=== PATIENT | male | born 1945 | race Caucasian/White ===

== ENCOUNTER 2016-06-16 20:30 | Observation (INO) | payer BC ==
--- NOTE | ~2016-06-16 | DS ---
Discharge Summary [facility] [address] [place]. [address] NAME: NEY CARLTON : 43 STATUS : DIS Francesca PAT#: [id number] AGE: 70 ADM/REG DATE : 06/16/16 MR#: [id number] REPORT SERV DATE: 06/18/16 DICTATED BY: JOSELYN BARRIOS DATE: 06/17/16 REPORT STATUS : Draft TRANSCRIBED BY: MODL DATE: 06/17/16 ADMISSION DATE: 06/16/2016 DISCHARGE DATE: 06/17/2016 DISCHARGE DIAGNOSIS: Hematemesis due to erosive esophagitis, due to gastroesophageal reflux disease, hypertension. HISTORY OF PRESENT ILLNESS: Please see dictation, 06/16/2016. HOSPITAL COURSE: Admitted with retching after choking on some meat followed by bright red hematemesis. The patient's hematocrit was stable. He had an EGD the following morning, showed actually severe erosive esophagitis with evidence of recent bleeding, but no peptic ulcer disease. He was stopped from all NSAIDs. He was put on Protonix and Carafate, able to be released home after advancing diet on 06/17/2016 in satisfactory condition. Instructed to avoid spicy or fatty foods. Activity as tolerated. Following up with Dr. Childers over the next several months for possible followup EGD. SANDRINE/MINERVA Joselyn Barrios M.D. / [id number] CC: Dimas Capone M.D.
--- NOTE | ~2016-06-16 | CN ---
Consultation Report [facility] [address] [place]. [address] NAME: NEY CARLTON : 43 STATUS : ADM Francesca PAT#: [id number] AGE: 70 ADM/REG DATE : 06/16/16 MR#: [id number] REPORT SERV DATE: 06/17/16 DICTATED BY: TAI SAHNI DATE: 06/17/16 REPORT STATUS : Draft TRANSCRIBED BY: MODL DATE: 06/17/16 GI CONSULTATION DATE OF CONSULTATION: 06/17/2016 REASON FOR CONSULTATION: Evaluation and management of hematemesis. HISTORY OF PRESENT ILLNESS: Mr. Carlton is a 70-year-old male patient, known to Dr. Childers in the outpatient setting, who presented to [facility] on 06/16 with a chief complaint of nausea, vomiting, retching with subsequent hematemesis. He states that he was in his usual state of health up until yesterday evening when he sat down with his to have his evening meal. He states they were eating steak. He only had a couple of bites, he got choked on the steak. It should be noted that he has a history of esophageal stricture, status post dilation in 2015. He states with that, he vomited up his steak, tried to drink some water, but then began to have retching. He states multiple episodes with some bright red blood intermixed. He denies any melena. He came into the hospital for further evaluation, very stable hemoglobin and was admitted at 16.2, presently it is 14.6. He has not had any subsequent vomiting. He has been n.p.o. and been maintained on a Protonix drip. I have discussed with him we will proceed with EGD today. Risks, benefits, alternatives, and complications were detailed for him to include, but not limited to risk of bleeding, perforation, infection, reaction to medications, as well as cardiac and pulmonary side effects. He is agreeable to proceed. He had an EGD with Dr. Childers on 10/03/2015. Findings on that exam showed a benign-appearing esophageal stricture, which he dilated up to a 54-Sammarinese, and also findings of LA grade D reflux esophagitis, a hiatal hernia, and normal duodenum. PAST MEDICAL HISTORY: Positive for hypertension, osteoarthritis, chronic low back pain, history of necrotizing fasciitis, esophagitis, esophageal stricture, hiatal hernia. PAST SURGICAL HISTORY: Bilateral total hip, bilateral total knee replacement. ALLERGIES: NO KNOWN ALLERGIES. HOME MEDICATIONS: Aspirin, Flonase, loratadine, and meloxicam. SOCIAL HISTORY: He denies any tobacco or illicits. Social alcohol. and lives independently with his . FAMILY HISTORY: Negative from a GI standpoint. REVIEW OF SYSTEMS: A 10-point review of systems has been obtained with pertinent positives being addressed in the history of present illness. Consultation Report [facility] [id number] [place]. [address] NAME: NEY CARLTON : 43 STATUS : ADM Francesca PAT#: [id number] AGE: 70 ADM/REG DATE : 06/16/16 MR#: [id number] REPORT SERV DATE: 06/17/16 DICTATED BY: TAI SAHNI DATE: 06/17/16 REPORT STATUS : Draft TRANSCRIBED BY: MINERVA DATE: 06/17/16 PERTINENT LABORATORY DATA: Sodium 143, potassium 4.0, BUN is 13, creatinine 0.84. White count 9.6, hemoglobin 14.6, hematocrit 42.5, platelet count 145. INR of 1.0. PHYSICAL EXAMINATION: VITAL SIGNS: Temperature 97.7, pulse 68, respirations 18, and blood pressure 144/81. NEURO: Reveals an alert male, resting in bed with no focal deficits. GENERAL: Cooperative, in no apparent distress. Awake, alert, and oriented x3. HEAD, EARS, EYES, NOSE, AND THROAT: Anicteric. Pupils equal, round, reactive to light and accommodation. Normocephalic and atraumatic. NECK: No JVD. No palpable nodes. Supple. LUNGS: Clear anteriorly with normal respiratory effort exhibited. Equal expansion. CARDIOVASCULAR SYSTEM: Regular rate and rhythm. S1 and S2. No murmurs, rubs, gallops, S3, or S4 appreciated. ABDOMEN: Soft and nontender with active bowel sounds in all four quadrants. No organomegaly appreciated. No rebound or guarding elicited on exam. EXTREMITIES: No edema. Normal distal pulses. SKIN: Warm, dry, and intact. ASSESSMENT: 1. Nausea and vomiting with hematemesis, most likely Jackie-Trevino tear. Differential diagnosis includes Jackie-Trevino tear, esophagitis, gastritis, or peptic ulcer disease. 2. History of esophageal stricture, status post dilation in 2016. PLAN: 1. EGD this morning. 2. Continue Protonix drip. 3. Other recommendations to follow endoscopy. JOO/MINERVA [place] MICHI Joshua / [id number] CC: Anderson Guevara M.D.
--- NOTE | ~2016-06-16 | EGD ---
EGD REPORT [facility] [address] [place]. [address] NAME: NEY CARLTON : 43 STATUS : ADM Francesca PAT#: [id number] AGE: 70 ADM/REG DATE : 06/16/16 MR#: [id number] REPORT SERV DATE: 06/17/16 DICTATED BY: RAAD MILLS DATE: 06/17/16 REPORT STATUS : Draft TRANSCRIBED BY: [facility] DATE: 06/17/16 Endoscopy Center Patient Name: Ney Carlton Date of : 1945 Attending MD: RAAD MLILS MD Procedure Date No Time: 06/17/2016 Procedure: Upper GI endoscopy Indications: Hematemesis Medicines: Monitored Anesthesia Care Complications: No immediate complications. Estimated blood loss: Minimal. Procedure: Pre-Anesthesia Assessment: - ASA Grade Assessment: III - A patient with severe systemic disease. After obtaining informed consent, the endoscope was passed under direct vision. Throughout the procedure, the patient's blood pressure, pulse, and oxygen saturations were monitored continuously. The GIF [id number] was introduced through the mouth, and advanced to the second part of duodenum. The upper GI endoscopy was accomplished without difficulty. The patient tolerated the procedure well. Findings: LA Grade C (one or more mucosal breaks continuous between tops of 2 or more mucosal folds, less than 75% circumference) esophagitis with no bleeding was found in the lower third of the esophagus. A low-grade of narrowing Schatzki ring (acquired) was found at the gastroesophageal junction. A single medium-sized purple nodule (vessel vs adherent clot) was found in the middle third of the esophagus. One hemostatic clip was successfully placed. Bleeding had stopped at the end of the procedure. Estimated blood loss was minimal. The entire examined stomach was normal. The examined duodenum was normal. Impression: - LA Grade C esophagitis. - Low-grade of narrowing Schatzki ring. - Mucosal tear with vessel vs adherent clot found in the esophagus. Clip was placed. - Otherwise normal examination Recommendation: - Return patient to hospital [facility] for observation. - Full liquid diet for 3 days then mechanical soft diet until follow up with GI. EGD REPORT [address] [address] NAME: NEY CARLTON : 43 STATUS : ADM Francesca PAT#: [id number] AGE: 70 ADM/REG DATE : 06/16/16 MR#: [id number] REPORT SERV DATE: 06/17/16 DICTATED BY: RAAD MILLS DATE: 06/17/16 REPORT STATUS : Draft TRANSCRIBED BY: [employer] DATE: 06/17/16 - Use Protonix (pantoprazole) 40 mg PO BID for 6 weeks. - Return to GI clinic in 4 weeks for repeat EGD to check healing and consider dilation of ring. Procedure Code(s): --- Professional --- 89528, Esophagogastroduodenoscopy, flexible, transoral; diagnostic, including collection of specimen(s) by brushing or washing, when performed (separate procedure) Diagnosis Code(s): --- Professional --- K20.9, Esophagitis, unspecified K22.2, Esophageal obstruction K22.8, Other specified diseases of esophagus K92.0, Hematemesis CPT copyright 2013 [employer]. All rights reserved. The codes documented in this report are preliminary and upon applications administrator review may be revised to meet current compliance requirements. Raad Mills MD RAAD MILLS MD 06/17/2016 11:42 AM This report has been signed electronically. Number of Addenda: 0 Note Initiated On: 06/17/2016 11:11 AM Scope Withdrawal Time 0 hours 0 minutes 0 seconds [id number] [id number]
--- NOTE | ~2016-06-16 | HP ---
History And Physical [address] [place]. [address] NAME: NEY CARLTON : 43 STATUS : ADM Francesca PAT#: [id number] AGE: 70 ADM/REG DATE : 06/16/16 MR#: [id number] REPORT SERV DATE: 06/17/16 DICTATED BY: KUNAL WOODS DATE: 06/17/16 REPORT STATUS : Draft TRANSCRIBED BY: MODMoncho DATE: 06/17/16 DATE OF ADMISSION: 06/16/2016 POINT OF ENTRY: [facility] Emergency Department. PRIMARY CARE PHYSICIAN: None at this time. CHIEF COMPLAINT: Hematemesis. HISTORY OF PRESENT ILLNESS: Mr. Carlton is a 70-year-old gentleman with a history of osteoarthritis as well as borderline blood pressure, not currently on medications, who presents to the emergency department today with reports of acute onset of hematemesis. The patient reports he was in his usual state of health and eating dinner at home when he got choked up on some of his dinner. He subsequently vomited up the contents of his dinner, tried to drink some water shortly afterwards, vomited again, and shortly after that started to vomit again, at this time was small amounts of bright red blood, estimated to be teaspoon sized amount. The patient otherwise denies any fevers, night sweats, chills, chest pain, cough, sputum production, shortness of breath, abdominal pain, diarrhea, constipation, dysuria, melena, hematochezia, or hemoptysis. REVIEW OF SYSTEMS: Comprehensive review of system otherwise negative unless listed in history of present illness. Initial evaluation in the emergency department notable for a hemoglobin of 16.2, INR 1.0. Labs were stable. The patient was subsequently admitted to the Hospitalist Service for further evaluation and management. PREVIOUS MEDICAL HISTORY: 1. Borderline blood pressure, not on medications. 2. Osteoarthritis. 3. Chronic lower back pain. 4. Remote history of necrotizing fasciitis. SURGICAL HISTORY: 1. Bilateral total hip. 2. Bilateral total knee. ALLERGIES: NO KNOWN DRUG ALLERGIES. HOME MEDICATIONS: 1. Aspirin 81 mg daily. 2. Flonase one spray nasal daily. History And Physical [address] [place] [address] NAME: NEY CARLTON : 43 STATUS : ADM Francesca PAT#: [id number] AGE: 70 ADM/REG DATE : 06/16/16 MR#: [id number] REPORT SERV DATE: 06/17/16 DICTATED BY: KUNAL WOODS DATE: 06/17/16 REPORT STATUS : Draft TRANSCRIBED BY: MINERVA DATE: 06/17/16 3. Loratadine 10 mg daily. 4. Meloxicam 7.5 mg daily. SOCIAL HISTORY: He denies any tobacco or illicits. Occasional alcohol intake. FAMILY MEDICAL HISTORY: Mother in her 90s of old age. Father of complications of a hip replacement. Sibling with a history of renal cell carcinoma. LABS AND IMAGIN. White count 9.6, hemoglobin 16.2, hematocrit is 46.2, platelet count is 145. INR 1.0. 2. Sodium is 143, potassium 4.0, chloride 105, carbon dioxide 29, BUN 13, creatinine 0.84, glucose is 94, calcium is 8.7, protein 7.3, albumin is 4.1, bilirubin is 0.5, ALT is 35, AST 20, alkaline phosphatase is 74. 3. Chest x-ray per my review shows no acute cardiopulmonary abnormality. PHYSICAL EXAMINATION: VITAL SIGNS: Initially, temperature is 98.1 degrees Fahrenheit, pulse is 74, respirations 16, saturating 96% on room air, blood pressure 190/100. On recheck it is now 138/90, pulse is 67, saturating 97% on room air. GENERAL: The patient is awake, alert, in no acute distress, resting comfortably in bed. He is a well-developed, well-nourished, elderly male. HEENT: Atraumatic and normocephalic. Moist mucous membranes. Pupils are equal, round, reactive to light and accommodation. Extraocular eye movements are intact. No scleral icterus. NECK: No jugular venous distention or carotid bruits. CARDIAC: Regular rate and rhythm. No murmurs, rubs, or gallops. Normal S1, S2. LUNGS: Clear to auscultation bilaterally. No wheezes, rhonchi, or crackles. ABDOMEN: Soft, nontender, nondistended. Good bowel sounds. No rebound, guarding, or rigidity. EXTREMITIES: Warm and well perfused. No cyanosis, clubbing, or edema. SKIN: Warm and dry. PSYCH: Affect appropriate. NEURO: Alert and oriented x3. Cranial nerves 2 through 12 grossly intact. Speech is normal. Gait not assessed. ASSESSMENT: Mr. Carlton is a 70-year-old, gentleman with no significant previous medical history, who developed some hematemesis after vomiting up his dinner, likely consistent with a Jackie-Trevino tear. PROBLEM LIST: 1. Hematemesis, likely Jackie-Trevino tear. 2. Thrombocytopenia. 3. Hypertension. PLAN: 1. Hematemesis. Given the patient's story, this is likely Jackie-Trevino tear from prior retching when he became choked up. He denies having received any endoscopies in the History And Physical [address] [address] NAME: NEY CARLTON : 43 STATUS : ADM Francesca PAT#: [id number] AGE: 70 ADM/REG DATE : 06/16/16 MR#: [id number] REPORT SERV DATE: 06/17/16 DICTATED BY: KUNAL WOODS DATE: 06/17/16 REPORT STATUS : Draft TRANSCRIBED BY: MINERVA DATE: 06/17/16 past. Denies any history of peptic ulcer disease or liver disease. We will trend out q.6 hours hemoglobin and hematocrits, make the patient nothing by mouth, and place the patient on a Protonix drip as directed by GI. Per discussion with GI by the ER staff, there are tentative plans for EGD evaluation in the morning. We will hold his aspirin and NSAIDs in the event that this might be peptic ulcer related. 2. Thrombocytopenia. This is very mild. We will continue to monitor. 3. Hypertension. The patient's blood pressure is much improved after having been stabilized here in the emergency department. We will continue to monitor, likely all due to stress and pain. 4. DVT prophylaxis. TEDs and SCDs given bleeding. CODE STATUS: The patient wished to be full code. BOLA/DAPHNEL Kunal Woods MD / [id number] CC: Anderson Guevara M.D.
[~2016-06-16 20:30] MED LIST: ADVIL PO; ASAB PO; C5 PO; CLARIT10 PO; CLARITD PO; FISH OIL OTC PO; FISH-EPA1000 MG PO; FLONASE NAS; HALF81 PO; MOBIC15 MG PO; MULTIVIT/MIN PO; PCET PO; THERAPEUTIC PO; VISINE0.05 % OPH; VITAMIN D1000 UNI1 PO; ZESTORETIC PO
[2016-06-16 20:51] LABS: BASOPHILS 0.5 %; BASOPHILS ABSOLUTE 0.03 10/3/uL (0.0-0.16); EOSINOPHILS 3.4 %; EOSINOPHILS ABSOLUTE 0.22 10/3/uL (0.0-0.53); ER CBC TAT 0 Hrs 05 Mins; IMMATURE GRANULOCYTES 0.2 %; IMMATURE GRANULOCYTES ABSOLUTE 0.01 10/3/uL (0.0-0.11); LYMPHOCYTES 17.2 %; LYMPHOCYTES ABSOLUTE 1.13 10/3/uL (0.67-4.30); MEAN CORPUS HGB CONC 35.3 g/dL (32.0-36.0); MEAN CORPUSCULAR HEMOGLOB 33.5 pg (26.0-34.0); MEAN CORPUSCULAR VOLUME 94.9 fL (80-100); MEAN PLATELET VOLUME 10.2 fL (9.2-13.0); MONOCYTES 8.2 %; MONOCYTES ABSOLUTE 0.54 10/3/uL (0.21-1.20); NEUTROPHILS 70.5 %; NEUTROPHILS ABSOLUTE 4.63 10/3/uL (2.02-8.40); PLATELET COUNT 151 10/3/uL (150-400); RBC DISTRIBUTION WIDTH 13.1 % (12.0-16.0); RED CELL COUNT 4.93 10/6/uL (4.7-6.1); WHITE BLOOD CELLS 6.6 10/3/uL (4.5-10.5)
[2016-06-16 20:57] LABS: HEMATOCRIT 46.8 % (40.0-51.0); HEMOGLOBIN 16.5 g/dL (13.6-17.8); MANUAL DIFF NO %
[2016-06-16 21:01] LABS: INTERNATIONAL NORMAL RATI 0.9 UNITS (-); PARTIAL THROMBO TIME 25.4 SEC (22.5-37.2); PROTIME (NOT ORD) 12.4 SEC (12.0-14.5)
[2016-06-16 21:04] LABS: A/G RATIO 1.2 (0.7-1.9); ALBUMIN 4.1 G/DL (3.5-5.0); BUN (BLOOD UREA NITROGEN) 12 MG/DL (6-23); CALCIUM, SERUM 8.7 MG/DL (8.5-10.4); CHLORIDE, SERUM 105 MMOL/L (96-112); CO2 (CARBON DIOXIDE) 31 MMOL/L (24-34); CREATININE 0.86 MG/DL (0.70-1.30); GFR AFRICAN AMERICAN 101 ML/MIN (>=60); GFR NON AFRICAN AMERICAN 87 ML/MIN (>=60); GLOBULIN 3.3 G/DL (2.5-4.1); GLUCOSE, SERUM 98 MG/DL (60-99); POTASSIUM, SERUM 4.1 MMOL/L (3.5-5.3); SGOT(AST) 19 U/L (5-40); SGPT(ALT) 33 U/L (5-65); SODIUM, SERUM 143 MMOL/L (135-148); TOTAL BILIRUBIN 0.4 MG/DL (0-1.2); TOTAL PROTEIN 7.4 G/DL (6.0-8.5)
[2016-06-16 21:05] LABS: ALKALINE PHOSPHATASE 75 U/L (45-117)
[2016-06-16 23:09] LABS: BASOPHILS 0.3 %; BASOPHILS ABSOLUTE 0.03 10/3/uL (0.0-0.16); EOSINOPHILS 2.5 %; EOSINOPHILS ABSOLUTE 0.24 10/3/uL (0.0-0.53); HEMATOCRIT 46.2 % (40.0-51.0); HEMOGLOBIN 16.2 g/dL (13.6-17.8); IMMATURE GRANULOCYTES 0.1 %; IMMATURE GRANULOCYTES ABSOLUTE 0.01 10/3/uL (0.0-0.11); LYMPHOCYTES 16.2 %; LYMPHOCYTES ABSOLUTE 1.55 10/3/uL (0.67-4.30); MEAN CORPUS HGB CONC 35.1 g/dL (32.0-36.0); MEAN CORPUSCULAR HEMOGLOB 33.3 pg (26.0-34.0); MEAN CORPUSCULAR VOLUME 94.9 fL (80-100); MEAN PLATELET VOLUME 10.6 fL (9.2-13.0); MONOCYTES 7.2 %; MONOCYTES ABSOLUTE 0.69 10/3/uL (0.21-1.20); NEUTROPHILS 73.7 %; NEUTROPHILS ABSOLUTE 7.06 10/3/uL (2.02-8.40); PLATELET COUNT 145 10/3/uL (150-400); RED CELL COUNT 4.87 10/6/uL (4.7-6.1)
[2016-06-16 23:11] LABS: ER CBC TAT 0 Hrs 06 MinsNP; MANUAL DIFF NO %; WHITE BLOOD CELLS 9.6 10/3/uL (4.5-10.5)
[2016-06-16 23:16] LABS: PARTIAL THROMBO TIME 25.3 SEC (22.5-37.2); PROTIME (NOT ORD) 13.2 SEC (12.0-14.5)
[2016-06-16 23:25] LABS: A/G RATIO 1.3 (0.7-1.9); ALBUMIN 4.1 G/DL (3.5-5.0); ALKALINE PHOSPHATASE 74 U/L (45-117); BUN (BLOOD UREA NITROGEN) 13 MG/DL (6-23); CALCIUM, SERUM 8.7 MG/DL (8.5-10.4); CHLORIDE, SERUM 105 MMOL/L (96-112); CO2 (CARBON DIOXIDE) 29 MMOL/L (24-34); CREATININE 0.84 MG/DL (0.70-1.30); GFR AFRICAN AMERICAN 102 ML/MIN (>=60); GFR NON AFRICAN AMERICAN 88 ML/MIN (>=60); GLOBULIN 3.2 G/DL (2.5-4.1); GLUCOSE, SERUM 94 MG/DL (60-99); SGOT(AST) 20 U/L (5-40); SGPT(ALT) 35 U/L (5-65); SODIUM, SERUM 143 MMOL/L (135-148); TOTAL BILIRUBIN 0.5 MG/DL (0-1.2); TOTAL PROTEIN 7.3 G/DL (6.0-8.5)
[2016-06-17] MEDS ORDERED: MOBIC7.5 PO (00:23)
[2016-06-17] MEDS ORDERED: CLARIT10 PO (00:23)
[2016-06-17] MEDS ORDERED: FLONASE NAS (00:24)
[2016-06-17] MEDS ORDERED: ASAB PO (00:24)
[2016-06-17 04:38] LABS: HEMATOCRIT 42.5 % (40.0-51.0); HEMOGLOBIN 14.6 g/dL (13.6-17.8)
[2016-06-17 11:24] LABS: HEMATOCRIT 44.1 % (40.0-51.0); HEMOGLOBIN 14.7 g/dL (13.6-17.8)
[2016-06-17] MEDS ORDERED: PROTONIX PO (16:37)
[2016-06-17] MEDS ORDERED: SUCR PO (16:38)
== END 2016-06-17 17:22 | disposition home or self-care (01) ==
LOC: ER 20:30 → 4SO 23:59
PROVIDERS: Internal Medicine; Internal Medicine Gastroenterology; Nurse Practitioner Acute Care; Specialist
PROC: 0DJ08ZZ Inspection of Upper Intestinal Tract, Via Natural or Artificial Opening Endoscopic (ICD-10-PCS; principal; 2016-06-17 11:26)
DX: K20.9 Esophagitis, unspecified (principal); K22.2 Esophageal obstruction; K22.8 Other specified diseases of esophagus; D69.6 Thrombocytopenia, unspecified; M19.90 Unspecified osteoarthritis, unspecified site; M54.5 Low back pain; I10 Essential (primary) hypertension; G89.29 Other chronic pain; Z96.643 Presence of artificial hip joint, bilateral; Z96.653 Presence of artificial knee joint, bilateral; Z79.82 Long term (current) use of aspirin
CPT/HCPCS: 36415; 71020; 80053; 85014; 85018; 85025; 85610; 85730; 86850; 86900; 86901; 93005; 96374; 96375; 96376; 99285; A9270-GY; C9113; G0378; J2405